=== PATIENT | female | born 1955 | race Two or more races ===

== ENCOUNTER → 2018-03-14 | Outpatient (CLI) | payer OTHER | END | disposition home or self-care (01) | LOC: SONOGRAMA 15:02 → MAMO-SONO 15:15 | DX: C73 Malignant neoplasm of thyroid gland (principal) ==

== ENCOUNTER 2018-05-18 12:18 | Outpatient (CLI) | payer OTHER | END 2018-05-18 12:31 | disposition home or self-care (01) | LOC: RAD 12:18 | DX: M81.0 Age-related osteoporosis without current pathological fracture (principal) ==

== ENCOUNTER 2018-08-31 14:08 | Outpatient (CLI) | payer OTHER | END 2018-08-31 14:12 | disposition home or self-care (01) | LOC: NUCLEAR 14:08 | DX: M81.0 Age-related osteoporosis without current pathological fracture (principal) ==

== ENCOUNTER 2018-09-17 12:22 | Outpatient (CLI) | payer OTHER | END 2018-09-17 12:25 | disposition home or self-care (01) | LOC: MAMO-SONO 12:22 | DX: Z12.31 Encounter for screening mammogram for malignant neoplasm of breast (principal); N64.4 Mastodynia ==

== ENCOUNTER 2019-01-11 08:23 | Outpatient (CLI) | payer OTHER | END 2019-01-11 15:00 | disposition home or self-care (01) | LOC: LAB 08:23 | DX: M54.5 Low back pain (principal); E03.8 Other specified hypothyroidism; E55.9 Vitamin D deficiency, unspecified; Z68.25 Body mass index [BMI] 25.0-25.9, adult; I11.9 Hypertensive heart disease without heart failure ==

== ENCOUNTER 2019-03-04 07:20 | Outpatient (CLI) | payer OTHER | END 2019-03-04 08:27 | disposition home or self-care (01) | LOC: LAB 07:20 | DX: C73 Malignant neoplasm of thyroid gland (principal); E89.0 Postprocedural hypothyroidism ==

== ENCOUNTER 2019-04-16 13:13 | Emergency (ER) | payer OTHER ==
[~2019-04-16] VITALS: Ht 154.9 cm; Wt 61.2 kg
[2019-04-16] MEDS ORDERED: LIPITOR20 MG (13:31)
[2019-04-16] MEDS ORDERED: SYNTHROID112 MCG (13:31)
[2019-04-16] MEDS ORDERED: ZANTAC 7575 MG (13:31)
[2019-04-16] MEDS ORDERED: NORVASC5 MG (13:31)
== END 2019-04-16 15:48 | disposition home or self-care (01) ==
LOC: ER 13:13
DX: B34.9 Viral infection, unspecified (principal); J11.1 Influenza due to unidentified influenza virus with other respiratory manifestations

== ENCOUNTER 2019-05-01 07:49 | Outpatient (CLI) | payer OTHER ==
[~2019-05-01 07:49] MED LIST: LIPITOR20 MG; NORVASC5 MG; SYNTHROID112 MCG; ZANTAC 7575 MG
== END 2019-05-01 15:00 | disposition home or self-care (01) ==
LOC: LAB 07:49
DX: E03.8 Other specified hypothyroidism (principal); E55.9 Vitamin D deficiency, unspecified; I11.9 Hypertensive heart disease without heart failure; J45.20 Mild intermittent asthma, uncomplicated; J45.902 Unspecified asthma with status asthmaticus; K29.00 Acute gastritis without bleeding; M54.5 Low back pain; Z68.25 Body mass index [BMI] 25.0-25.9, adult

== ENCOUNTER → 2019-08-01 08:43 | Outpatient (CLI) | payer OTHER | END | disposition home or self-care (01) | LOC: LAB 08:43 | DX: E03.8 Other specified hypothyroidism (principal); E55.9 Vitamin D deficiency, unspecified; I11.9 Hypertensive heart disease without heart failure; J45.20 Mild intermittent asthma, uncomplicated; J45.909 Unspecified asthma, uncomplicated; K29.00 Acute gastritis without bleeding; M54.5 Low back pain; Z68.25 Body mass index [BMI] 25.0-25.9, adult ==

== ENCOUNTER 2019-11-06 13:22 | Emergency (ER) | payer OTHER ==
[~2019-11-06] VITALS: Ht 154.9 cm; Wt 60.3 kg
[2019-11-06] MEDS ORDERED: MEDROLPACK PO (14:51)
[2019-11-06] MEDS ORDERED: ZITHROMAX500 MG PO (14:51)
[2019-11-06] MEDS ORDERED: TUSNEL LIQUID178 ML PO (14:51)
[2019-11-06] MEDS ORDERED: ALBUTEROL2.5 MG/3 M IH (14:52)
== END 2019-11-06 15:00 | disposition home or self-care (01) ==
LOC: ER 13:22
DX: J45.998 Other asthma (principal)

== ENCOUNTER → 2019-11-28 | Outpatient (CLI) | payer OTHER ==
[~2019-11-28] MED LIST changes: +ALBUTEROL2.5 MG/3 M IH; +MEDROLPACK PO; +TUSNEL LIQUID178 ML PO; +ZITHROMAX500 MG PO
== END | disposition home or self-care (01) ==
LOC: RAD 11:11
DX: M15.0 Primary generalized (osteo)arthritis (principal); M05.29 Rheumatoid vasculitis with rheumatoid arthritis of multiple sites

== ENCOUNTER → 2020-03-30 06:52 | Outpatient (CLI) | payer OTHER | END | disposition home or self-care (01) | LOC: LAB 06:52 | DX: C73 Malignant neoplasm of thyroid gland (principal); E89.0 Postprocedural hypothyroidism ==

== ENCOUNTER 2020-05-25 09:41 | Outpatient (CLI) | payer OTHER | END 2020-05-25 09:48 | disposition home or self-care (01) | LOC: MAMO-SONO 09:41 | PROVIDERS: ATTEND Internal Medicine Sports Medicine | DX: Z12.31 Encounter for screening mammogram for malignant neoplasm of breast (principal); C73 Malignant neoplasm of thyroid gland; N64.59 Other signs and symptoms in breast ==

== ENCOUNTER 2020-05-25 11:45 | Outpatient (CLI) | payer OTHER | END 2020-05-25 11:47 | disposition home or self-care (01) | LOC: NUCLEAR 11:45 | PROVIDERS: ATTEND Internal Medicine Cardiovascular Disease | DX: M81.0 Age-related osteoporosis without current pathological fracture (principal) ==

== ENCOUNTER 2020-06-18 07:19 | Outpatient (CLI) | payer OTHER | END 2020-06-18 07:33 | disposition home or self-care (01) | LOC: LAB 07:19 | PROVIDERS: ATTEND Internal Medicine Cardiovascular Disease | DX: E03.8 Other specified hypothyroidism (principal); I10 Essential (primary) hypertension; E11.9 Type 2 diabetes mellitus without complications; E78.2 Mixed hyperlipidemia; Z12.11 Encounter for screening for malignant neoplasm of colon; M81.0 Age-related osteoporosis without current pathological fracture ==

== ENCOUNTER 2020-06-19 11:01 | Outpatient (CLI) | payer OTHER | END 2020-06-19 11:05 | disposition home or self-care (01) | LOC: LAB 11:01 | PROVIDERS: ATTEND Internal Medicine Cardiovascular Disease | DX: I10 Essential (primary) hypertension (principal); E13.9 Other specified diabetes mellitus without complications; E78.2 Mixed hyperlipidemia; M81.0 Age-related osteoporosis without current pathological fracture; Z12.11 Encounter for screening for malignant neoplasm of colon ==

== ENCOUNTER 2020-07-23 08:08 | Outpatient (CLI) | payer OTHER | END 2020-07-23 08:22 | disposition home or self-care (01) | LOC: SONOGRAMA 08:08 | PROVIDERS: ATTEND Pathology Anatomic Pathology & Clinical Pathology | DX: E03.8 Other specified hypothyroidism (principal) ==

== ENCOUNTER → 2020-09-09 | Outpatient (CLI) | payer OTHER | END | disposition home or self-care (01) | LOC: OFIC 805 09:00 | PROVIDERS: ATTEND Otolaryngology | DX: E04.1 Nontoxic single thyroid nodule (principal) ==

== ENCOUNTER 2020-09-18 08:25 | Outpatient (CLI) | payer OTHER | END 2020-09-18 08:32 | disposition home or self-care (01) | LOC: LAB 08:25 | PROVIDERS: ATTEND Otolaryngology | DX: E04.1 Nontoxic single thyroid nodule (principal) ==

== ENCOUNTER → 2020-10-01 08:08 | Outpatient (CLI) | payer OTHER | END | disposition home or self-care (01) | LOC: LAB 08:08 | PROVIDERS: ATTEND Internal Medicine Cardiovascular Disease | DX: I10 Essential (primary) hypertension (principal); E11.9 Type 2 diabetes mellitus without complications; E03.8 Other specified hypothyroidism; E78.2 Mixed hyperlipidemia ==

== ENCOUNTER 2020-12-17 12:24 | Outpatient (CLI) | payer OTHER | END 2020-12-17 12:36 | disposition HB | LOC: RAD 12:24 | DX: M41.85 Other forms of scoliosis, thoracolumbar region (principal); E04.1 Nontoxic single thyroid nodule; M15.0 Primary generalized (osteo)arthritis ==

== ENCOUNTER 2020-12-21 06:58 | Outpatient (CLI) | payer OTHER | END 2020-12-21 07:08 | disposition home or self-care (01) | LOC: LAB 06:58 | DX: C73 Malignant neoplasm of thyroid gland (principal); E04.1 Nontoxic single thyroid nodule; I10 Essential (primary) hypertension ==

== ENCOUNTER 2021-01-29 07:26 | Outpatient (CLI) | payer OTHER | END 2021-01-29 08:25 | disposition home or self-care (01) | LOC: LAB 07:26 | PROVIDERS: ATTEND Internal Medicine Cardiovascular Disease | DX: E03.8 Other specified hypothyroidism (principal); I10 Essential (primary) hypertension; E11.9 Type 2 diabetes mellitus without complications; E78.2 Mixed hyperlipidemia; Z12.11 Encounter for screening for malignant neoplasm of colon ==

== ENCOUNTER 2021-06-07 07:44 | Outpatient (CLI) | payer OTHER | END 2021-06-07 07:49 | disposition home or self-care (01) | LOC: LAB 07:44 | PROVIDERS: ATTEND Internal Medicine Sports Medicine | DX: D64.89 Other specified anemias (principal); E11.9 Type 2 diabetes mellitus without complications; E78.2 Mixed hyperlipidemia; I10 Essential (primary) hypertension; E03.8 Other specified hypothyroidism; C73 Malignant neoplasm of thyroid gland ==

== ENCOUNTER 2021-06-15 10:34 | Outpatient (CLI) | payer OTHER | END 2021-06-15 10:39 | disposition home or self-care (01) | LOC: SONOGRAMA 10:34 | PROVIDERS: ATTEND Surgery | DX: C73 Malignant neoplasm of thyroid gland (principal) ==

== ENCOUNTER → 2021-06-24 06:45 | Outpatient (CLI) | payer OTHER | END | disposition home or self-care (01) | LOC: LAB 06:45 | PROVIDERS: ATTEND Internal Medicine Cardiovascular Disease | DX: I10 Essential (primary) hypertension (principal); E11.9 Type 2 diabetes mellitus without complications; E03.8 Other specified hypothyroidism; E78.2 Mixed hyperlipidemia ==

== ENCOUNTER → 2022-01-17 07:46 | Outpatient (CLI) | payer OTHER | END | disposition home or self-care (01) | LOC: LAB 07:46 | PROVIDERS: ATTEND Internal Medicine Sports Medicine | DX: C73 Malignant neoplasm of thyroid gland (principal); E89.0 Postprocedural hypothyroidism ==

== ENCOUNTER 2022-05-24 11:20 | Outpatient (CLI) | payer OTHER | END 2022-05-24 11:29 | disposition home or self-care (01) | LOC: RAD 11:20 | PROVIDERS: ATTEND Internal Medicine Sports Medicine | DX: M54.2 Cervicalgia (principal); C73 Malignant neoplasm of thyroid gland ==

== ENCOUNTER 2022-05-27 12:37 | Outpatient (CLI) | payer OTHER | END 2022-05-27 12:41 | disposition home or self-care (01) | LOC: NUCLEAR 12:37 | PROVIDERS: ATTEND Internal Medicine Sports Medicine | DX: M13.0 Polyarthritis, unspecified (principal); M05.9 Rheumatoid arthritis with rheumatoid factor, unspecified ==

== ENCOUNTER 2022-06-10 06:20 | Outpatient (CLI) | payer OTHER | END 2022-06-10 06:21 | disposition home or self-care (01) | LOC: LAB 06:20 | PROVIDERS: ATTEND Internal Medicine Sports Medicine | DX: C73 Malignant neoplasm of thyroid gland (principal); E01.0 Iodine-deficiency related diffuse (endemic) goiter ==

== ENCOUNTER 2022-07-13 11:01 | Outpatient (CLI) | payer OTHER | END 2022-07-13 11:14 | disposition home or self-care (01) | LOC: MAMO-SONO 11:01 | PROVIDERS: ATTEND Internal Medicine Cardiovascular Disease | DX: Z12.31 Encounter for screening mammogram for malignant neoplasm of breast (principal); N63.11 Unspecified lump in the right breast, upper outer quadrant ==

== ENCOUNTER 2022-07-21 08:57 | Outpatient (CLI) | payer OTHER | END 2022-07-21 08:58 | disposition home or self-care (01) | LOC: LAB 08:57 | PROVIDERS: ATTEND Internal Medicine Cardiovascular Disease | DX: I10 Essential (primary) hypertension (principal); E78.2 Mixed hyperlipidemia ==

== ENCOUNTER 2022-08-23 09:34 | Outpatient (CLI) | payer OTHER | END 2022-08-23 15:05 | disposition home or self-care (01) | LOC: RAD 09:34 | DX: M54.2 Cervicalgia (principal) ==

== ENCOUNTER 2023-07-09 13:21 | Emergency (ER) | payer OTHER ==
[~2023-07-09] VITALS: Ht 154.9 cm; Wt 62.1 kg
[2023-07-09] MEDS ORDERED: PROTONIX40 MG PO (14:01)
== END 2023-07-09 19:51 | disposition home or self-care (01) ==
LOC: ER 13:21
DX: S13.4XXA Sprain of ligaments of cervical spine, initial encounter (principal); W18.30XA Fall on same level, unspecified, initial encounter; Y93.17 Activity, water skiing and wake boarding; Y92.22 Religious institution as the place of occurrence of the external cause; Y99.9 Unspecified external cause status
CPT/HCPCS: 72040; 96372 ×2; 99283; J1885

== ENCOUNTER 2023-08-04 10:58 | Outpatient (CLI) | payer OTHER ==
[~2023-08-04 10:58] MED LIST changes: +PROTONIX40 MG PO
== END 2023-08-04 11:07 | disposition home or self-care (01) ==
LOC: TOM 10:58
PROVIDERS: ATTEND Internal Medicine Rheumatology
DX: M54.12 Radiculopathy, cervical region (principal); M50.30 Other cervical disc degeneration, unspecified cervical region; M47.14 Other spondylosis with myelopathy, thoracic region

== ENCOUNTER 2023-09-25 09:29 | Outpatient (CLI) | payer OTHER | END 2023-09-25 09:38 | disposition home or self-care (01) | LOC: MAMO-SONO 09:29 | PROVIDERS: ATTEND Internal Medicine Cardiovascular Disease | DX: Z12.31 Encounter for screening mammogram for malignant neoplasm of breast (principal); N60.12 Diffuse cystic mastopathy of left breast ==

== ENCOUNTER 2024-01-15 06:30 | Outpatient (CLI) | payer OTHER ==
[2024-01-15 07:32] LABS: URINE APPEARANCE Clear; URINE BILIRRUBIN Negative (NEGATIVE); URINE BLOOD Small; URINE COLOR Yellow; URINE GLUCOSE Negative (NEGATIVE); URINE LEUKOCYTE Negative; URINE NITRATE Negative; URINE PROTEIN Negative (NEGATIVE)
[2024-01-15 07:36] LABS: URINE BACTERIA 141.1 uL (0.0-1933); URINE EPITHELIAL CELLS 8.7 uL (0.0-38.8); URINE RBC 43.3 uL (0.0-20.8)
[2024-01-15 07:36] LABS: HEMATOCRIT 41.1 % (36.0-45.00); HEMOGLOBIN 14.1 g/dL (12.0-15.00); MEAN CELL VOLUME 96.8 fL (80.00-100.00); MEAN CORPUSCULAR HEMOGLOBIN 33.2 pg (27.00-32.0); MEAN CORPUSCULAR HGB CONC 34.3 g/dl (32.0-36.0); PLATELET COUNT 285 K/uL (150-450); RED BLOOD COUNT 4.25 M/uL (4.00-6.00); RED CELL DISTRIBUTION WIDTH 12.3 % (11.5-14.5)
[2024-01-15 07:41] LABS: URINE WBC 1.5 uL (0.0-23.2)
[2024-01-15 08:18] LABS: ALBUMIN 3.5 gm/dL (3.4-5.0); BILIRUBIN TOTAL 1.26 mg/dL (0.3-1.2); CALCIUM 9.1 mg/dL (8.5-10.1); CHOL HDL RATIO 3.7 (0-5.0); CREATININE SERUM 0.52 mg/dL (0.55-1.02); GFR 116.58; GLOBULINA 3.3 G/DL (2.4-3.5); POTASSIUM 3.71 mEq/L (3.5-5.1); T4 TOTAL 11.28 UG/DL (4.8-13.9); TOTAL PROTEIN 6.8 gm/dL (6.4-8.2); TSH 0.585 uIU/mL (0.358-3.74)
[2024-01-15 12:24] LABS: T3 TOTAL 1.12 ng/ml (0.846-2.02); VITAMIN D3 25 HYDROXY 38.37 ng/ml (30-120)
== END 2024-01-15 06:32 | disposition home or self-care (01) ==
LOC: LAB 06:30
PROVIDERS: ATTEND Internal Medicine Cardiovascular Disease
DX: E11.9 Type 2 diabetes mellitus without complications (principal); I10 Essential (primary) hypertension; E03.9 Hypothyroidism, unspecified; E78.2 Mixed hyperlipidemia; E55.9 Vitamin D deficiency, unspecified; Z12.11 Encounter for screening for malignant neoplasm of colon

== ENCOUNTER 2024-01-18 09:19 | Outpatient (CLI) | payer OTHER ==
[2024-01-18 09:56] LABS: ob NEGATIVE (NEGATIVE)
== END 2024-01-18 09:20 | disposition home or self-care (01) ==
LOC: LAB 09:19
PROVIDERS: ATTEND Internal Medicine Cardiovascular Disease
DX: I10 Essential (primary) hypertension (principal); E11.9 Type 2 diabetes mellitus without complications; E03.9 Hypothyroidism, unspecified; E78.2 Mixed hyperlipidemia; E55.9 Vitamin D deficiency, unspecified; Z12.11 Encounter for screening for malignant neoplasm of colon; Z91.013 Allergy to seafood; Z91.018 Allergy to other foods

== ENCOUNTER 2024-02-07 08:35 | Outpatient (CLI) | payer OTHER | END 2024-02-07 08:48 | disposition home or self-care (01) | LOC: SONOGRAMA 08:35 | PROVIDERS: ATTEND Internal Medicine Sports Medicine | DX: M54.16 Radiculopathy, lumbar region (principal); M54.17 Radiculopathy, lumbosacral region; M54.6 Pain in thoracic spine; C73 Malignant neoplasm of thyroid gland ==

== ENCOUNTER 2024-02-19 06:49 | Outpatient (CLI) | payer OTHER ==
[2024-02-19 08:51] LABS: CALCIUM 8.9 mg/dL (8.5-10.1); T4 FREE 1.28 NG/ML (0.76-1.46); TSH 0.426 uIU/mL (0.358-3.74)
== END 2024-02-19 06:50 | disposition home or self-care (01) ==
LOC: LAB 06:49
PROVIDERS: ATTEND Internal Medicine Sports Medicine
DX: C73 Malignant neoplasm of thyroid gland (principal); E89.0 Postprocedural hypothyroidism

== ENCOUNTER 2024-05-13 08:45 | Outpatient (CLI) | payer OTHER | END 2024-05-13 08:49 | disposition home or self-care (01) | LOC: RAD 08:45 | DX: G11.9 Hereditary ataxia, unspecified (principal); I10 Essential (primary) hypertension; M15.0 Primary generalized (osteo)arthritis ==

== ENCOUNTER → 2024-05-17 06:47 | Outpatient (CLI) | payer OTHER ==
[2024-05-17 07:40] LABS: PH,URINE 7.5 (5.0-8.0); URINE APPEARANCE Clear; URINE BILIRRUBIN Negative (NEGATIVE); URINE BLOOD Trace; URINE COLOR Yellow; URINE GLUCOSE Negative (NEGATIVE); URINE LEUKOCYTE Negative; URINE NITRATE Negative; URINE PROTEIN Negative (NEGATIVE); URINE UROBILINOGEN 0.2 E.U./dl
[2024-05-17 07:41] LABS: URINE BACTERIA 11.3 uL (0.0-1933); URINE EPITHELIAL CELLS 2.5 uL (0.0-38.8); URINE RBC 17.2 uL (0.0-20.8)
[2024-05-17 07:42] LABS: HEMOGLOBIN 13.8 g/dL (12.0-15.00); MEAN CELL VOLUME 97.2 fL (80.00-100.00); MEAN CORPUSCULAR HEMOGLOBIN 33.5 pg (27.00-32.0); MEAN CORPUSCULAR HGB CONC 34.5 g/dl (32.0-36.0); PLATELET COUNT 261 K/uL (150-450); RED BLOOD COUNT 4.11 M/uL (4.00-6.00); RED CELL DISTRIBUTION WIDTH 12.4 % (11.5-14.5)
[2024-05-17 07:46] LABS: URINE WBC 0.4 uL (0.0-23.2)
[2024-05-17 08:27] LABS: CALCIUM 8.8 mg/dL (8.5-10.1); CHOL HDL RATIO 4.1 (0-5.0); CREATININE SERUM 0.52 mg/dL (0.55-1.02); GFR 116.58; POTASSIUM 3.32 mEq/L (3.5-5.1); T4 TOTAL 11.57 UG/DL (4.8-13.9); TSH 2.58 uIU/mL (0.358-3.74)
== END | disposition home or self-care (01) ==
LOC: LAB 06:47
PROVIDERS: ATTEND Internal Medicine Cardiovascular Disease
DX: E11.9 Type 2 diabetes mellitus without complications (principal); I10 Essential (primary) hypertension; E03.9 Hypothyroidism, unspecified; E78.2 Mixed hyperlipidemia

== ENCOUNTER 2024-06-18 13:25 | Outpatient (CLI) | payer OTHER | END 2024-06-18 13:26 | disposition home or self-care (01) | LOC: NUCLEAR 13:25 | PROVIDERS: ATTEND Internal Medicine Cardiovascular Disease | DX: M81.0 Age-related osteoporosis without current pathological fracture (principal) ==

== ENCOUNTER → 2024-08-09 | Outpatient (CLI) | payer OTHER | END | disposition home or self-care (01) | LOC: MRI 08-08 15:10 | PROVIDERS: ATTEND Physical Medicine & Rehabilitation | DX: M25.562 Pain in left knee (principal) | CPT/HCPCS: 73721 ==

== ENCOUNTER → 2024-10-21 | Outpatient (CLI) | payer OTHER ==
[2024-10-21 07:26] LABS: PH,URINE 7.5 (5.0-8.0); URINE APPEARANCE Clear; URINE BILIRRUBIN Negative (NEGATIVE); URINE COLOR Yellow; URINE GLUCOSE Negative (NEGATIVE); URINE KETONE Negative (NEGATIVE); URINE LEUKOCYTE Negative; URINE NITRATE Negative; URINE PROTEIN Negative (NEGATIVE)
[2024-10-21 07:29] LABS: HEMATOCRIT 40.2 % (36.0-45.00); HEMOGLOBIN 13.6 g/dL (12.0-15.00); MEAN CORPUSCULAR HEMOGLOBIN 33.2 pg (27.00-32.0); MEAN CORPUSCULAR HGB CONC 33.9 g/dl (32.0-36.0); PLATELET COUNT 267 K/uL (150-450); RED CELL DISTRIBUTION WIDTH 12.3 % (11.5-14.5)
[2024-10-21 07:29] LABS: URINE BACTERIA 42.8 uL (0.0-1933); URINE EPITHELIAL CELLS 2.3 uL (0.0-38.8); URINE RBC 29.1 uL (0.0-20.8)
[2024-10-21 07:42] LABS: URINE BLOOD TRACES
[2024-10-21 08:42] LABS: CALCIUM 8.6 mg/dL (8.5-10.1); CREATININE SERUM 0.63 mg/dL (0.55-1.02); GFR 93.15; POTASSIUM 3.04 mEq/L (3.5-5.1); T4 TOTAL 11.93 UG/DL (4.8-13.9); TSH 3.04 uIU/mL (0.358-3.74)
== END | disposition home or self-care (01) ==
LOC: LAB 06:20
PROVIDERS: ATTEND Internal Medicine Cardiovascular Disease
DX: E11.9 Type 2 diabetes mellitus without complications (principal); I10 Essential (primary) hypertension; E03.9 Hypothyroidism, unspecified; E78.2 Mixed hyperlipidemia

== ENCOUNTER 2024-11-26 08:28 | Outpatient (CLI) | payer OTHER | END 2024-11-26 08:31 | disposition home or self-care (01) | LOC: SONOGRAMA 08:28 | PROVIDERS: ATTEND Internal Medicine Cardiovascular Disease | DX: R10.9 Unspecified abdominal pain (principal) ==

== ENCOUNTER 2024-11-26 09:31 | Outpatient (CLI) | payer OTHER ==
[2024-11-26 10:30] LABS: HEMATOCRIT 40.1 % (36.0-45.00); HEMOGLOBIN 13.9 g/dL (12.0-15.00); MEAN CELL VOLUME 96.6 fL (80.00-100.00); MEAN CORPUSCULAR HEMOGLOBIN 33.4 pg (27.00-32.0); MEAN CORPUSCULAR HGB CONC 34.6 g/dl (32.0-36.0); PLATELET COUNT 286 K/uL (150-450); RED BLOOD COUNT 4.15 M/uL (4.00-6.00); RED CELL DISTRIBUTION WIDTH 12.7 % (11.5-14.5)
[2024-11-26 11:19] LABS: AMYLASE 173 U/L (25-115); LIPASE 25 U/L (13-75)
== END 2024-11-26 12:28 | disposition home or self-care (01) ==
LOC: LAB 09:31
PROVIDERS: ATTEND Internal Medicine Cardiovascular Disease
DX: R10.9 Unspecified abdominal pain (principal); A05.9 Bacterial foodborne intoxication, unspecified

== ENCOUNTER → 2024-11-27 09:08 | Outpatient (CLI) | payer OTHER | END | disposition home or self-care (01) | LOC: LAB 09:08 | PROVIDERS: ATTEND Internal Medicine Cardiovascular Disease | DX: R10.9 Unspecified abdominal pain (principal); A05.9 Bacterial foodborne intoxication, unspecified ==

== ENCOUNTER 2024-12-03 08:51 | Outpatient (CLI) | payer OTHER | END 2024-12-03 09:01 | disposition home or self-care (01) | LOC: TOM 08:51 | PROVIDERS: ATTEND Internal Medicine Gastroenterology | DX: R10.9 Unspecified abdominal pain (principal); R74.8 Abnormal levels of other serum enzymes ==

== ENCOUNTER 2024-12-10 07:58 | Outpatient (CLI) | payer OTHER ==
[2024-12-10 10:05] LABS: AMYLASE 151 U/L (25-115); LIPASE 39 U/L (13-75)
== END 2024-12-10 07:59 | disposition home or self-care (01) ==
LOC: LAB 07:58
PROVIDERS: ATTEND Internal Medicine Gastroenterology
DX: R74.8 Abnormal levels of other serum enzymes (principal); R10.9 Unspecified abdominal pain

== ENCOUNTER 2025-02-10 11:02 | Outpatient (CLI) | payer OTHER | END 2025-02-10 11:30 | disposition home or self-care (01) | LOC: RAD 11:02 | PROVIDERS: ATTEND Orthopaedic Surgery Sports Medicine | DX: M25.562 Pain in left knee (principal) ==

== ENCOUNTER → 2025-04-08 06:41 | Outpatient (CLI) | payer OTHER ==
[2025-04-08 08:06] LABS: BASO % 0.4 % (0.1-1.2); EOS # 0.18 (0.04-0.54); EOS % 1.7 % (0.7-7.0); HEMATOCRIT 41.6 % (34.1-44.9); LYMPH # 2.69 (1.18-3.74); LYMPH % 25.9 % (19.3-53.1); MEAN CORPUSCULAR HEMOGLOBIN 32.4 pg (25.6-32.2); MONO # 0.67 (0.24-0.82); MONO % 6.5 % (4.7-12.5); NEUT # 6.75 (1.56-6.13); PLATELET COUNT 324 K/uL (163-369); RED BLOOD COUNT 4.32 M/uL (3.93-5.22); RED CELL DISTRIBUTION WIDTH 11.6 % (11.6-14.4)
[2025-04-08 08:35] LABS: PH,URINE 7.5 (5.0-8.0); URINE APPEARANCE Clear; URINE BILIRRUBIN Negative (NEGATIVE); URINE COLOR Yellow; URINE GLUCOSE Negative (NEGATIVE); URINE KETONE Negative (NEGATIVE); URINE LEUKOCYTE Negative; URINE NITRATE Negative; URINE PROTEIN Negative (NEGATIVE); URINE UROBILINOGEN 0.2 E.U./dl
[2025-04-08 08:41] LABS: URINE BACTERIA 7.3 uL (0.0-1933); URINE RBC 28.3 uL (0.0-20.8)
[2025-04-08 08:45] LABS: URINE WBC 0.1 uL (0.0-23.2)
[2025-04-08 08:46] LABS: URINE BLOOD TRACES
[2025-04-08 09:24] LABS: ALBUMIN 3.6 gm/dL (3.4-5.0); BILIRUBIN TOTAL 0.88 mg/dL (0.3-1.2); CALCIUM 8.5 mg/dL (8.5-10.1); CHOL HDL RATIO 3.9 (0-5.0); CREATININE SERUM 0.66 mg/dL (0.55-1.02); GFR 88.28; GLOBULINA 3.4 G/DL (2.4-3.5); POTASSIUM 3.5 mEq/L (3.5-5.1); T4 FREE 1.24 NG/ML (0.76-1.46)
[2025-04-08 09:28] LABS: TSH 0.125 uIU/mL (0.358-3.74)
== END | disposition home or self-care (01) ==
LOC: LAB 06:41
PROVIDERS: ATTEND Internal Medicine Sports Medicine
DX: D64.9 Anemia, unspecified (principal); E11.9 Type 2 diabetes mellitus without complications; E78.2 Mixed hyperlipidemia; I10 Essential (primary) hypertension; E03.8 Other specified hypothyroidism

== ENCOUNTER 2025-04-29 09:31 | Outpatient (CLI) | payer OTHER | END 2025-04-29 09:42 | disposition home or self-care (01) | LOC: MAMO-SONO 09:31 | PROVIDERS: ATTEND Internal Medicine Cardiovascular Disease | DX: N60.11 Diffuse cystic mastopathy of right breast (principal); N60.12 Diffuse cystic mastopathy of left breast; Z12.31 Encounter for screening mammogram for malignant neoplasm of breast ==

== ENCOUNTER 2025-08-07 06:20 | Outpatient (CLI) | payer OTHER ==
[2025-08-07 07:50] LABS: URINE APPEARANCE Clear; URINE BILIRRUBIN Negative (NEGATIVE); URINE BLOOD Small; URINE COLOR Yellow; URINE GLUCOSE Negative (NEGATIVE); URINE KETONE Negative (NEGATIVE); URINE LEUKOCYTE Negative; URINE NITRATE Negative; URINE PROTEIN Negative (NEGATIVE); URINE UROBILINOGEN 0.2 E.U./dl
[2025-08-07 07:51] LABS: BASO % 0.4 % (0.1-1.2); EOS # 0.20 (0.04-0.54); EOS % 2.0 % (0.7-7.0); LYMPH # 3.09 (1.18-3.74); LYMPH % 30.9 % (19.3-53.1); MEAN PLATELET VOLUME 10.80 fl (9.4-12.4); MONO # 0.67 (0.24-0.82); MONO % 6.7 % (4.7-12.5); NEUT # 5.91 (1.56-6.13); NEUT % 59.2 % (34.0-71.1); RED CELL DISTRIBUTION WIDTH 11.4 % (11.6-14.4)
[2025-08-07 07:54] LABS: URINE BACTERIA 295.1 uL (0.0-1933); URINE EPITHELIAL CELLS 11.4 uL (0.0-38.8); URINE RBC 23.1 uL (0.0-20.8)
[2025-08-07 07:59] LABS: URINE CAST 0.14 uL (0.0-1.40); URINE WBC 0.7 uL (0.0-23.2)
[2025-08-07 09:07] LABS: ALT/SGPT 28.0 U/L (12-78); AST/SGOT 17.0 U/L (15-37); BILIRUBIN TOTAL 1.48 mg/dL (0.3-1.2); BUN CREA RATIO 24.0 (7.0-25.0); CHOL HDL RATIO 4.8 (0-5.0); CREATININE SERUM 0.49 mg/dL (0.55-1.02); GFR 124.49; GLOBULINA 3.5 G/DL (2.4-3.5); GLUCOSE FASTING 89.0 mg/dL (65-100); HDL 46.0 mg/dl (40-60); LDL 138.0 mg/dl (0-130); OSMOLALITY SERUM 280.0 MOSM/KG (275-295); T4 TOTAL 11.56 UG/DL (4.8-13.9); VLDL 38.0 (0-39)
[2025-08-07 09:09] LABS: TSH 0.293 uIU/mL (0.358-3.74)
== END 2025-08-07 06:27 | disposition home or self-care (01) ==
LOC: LAB 06:20
PROVIDERS: ATTEND Internal Medicine Cardiovascular Disease
DX: I10 Essential (primary) hypertension (principal); E03.9 Hypothyroidism, unspecified; E78.2 Mixed hyperlipidemia; R73.03 Prediabetes

== ENCOUNTER 2025-09-16 06:26 | Outpatient (CLI) | payer OTHER ==
[2025-09-16 09:28] LABS: T4 FREE 1.38 NG/ML (0.76-1.46)
[2025-09-16 09:29] LABS: TSH 0.107 uIU/mL (0.358-3.74)
== END 2025-09-16 06:31 | disposition home or self-care (01) ==
LOC: LAB 06:26
PROVIDERS: ATTEND Internal Medicine Sports Medicine
DX: C73 Malignant neoplasm of thyroid gland (principal); E89.0 Postprocedural hypothyroidism